=== PATIENT | male | born 1955 | race Caucasian/White ===

== ENCOUNTER → 2018-05-28 | Outpatient (CLI) | payer OTHER ==
[~2018-05-28] MED LIST: ASPI81TA45 PO; ATOR20TA PO; FENO160T PO; LOSA50TA2 PO; METO25TA35 PO; OMEP-110 PO; REGADENOSON 0.4 MG/5 ML SYRINGE ONE; ROSU10TA2 PO; ROSU20TA2 PO; TICA90TA PO
== END | disposition home or self-care (01) ==
LOC: CFH 07:54
PROVIDERS: ATTEND Internal Medicine Cardiovascular Disease
DX: I25.9 Chronic ischemic heart disease, unspecified (principal)
CPT/HCPCS: 78452; 93017; A9502; J2785

== ENCOUNTER 2018-07-29 07:40 | Inpatient (IN) | payer OTHER ==
[~2018-07-29] VITALS: Ht 172.7 cm; Wt 103.7 kg
[~2018-07-29 07:40] MED LIST changes: -REGADENOSON 0.4 MG/5 ML SYRINGE ONE
--- NOTE | 2018-07-29 08:11 | NUR ---
FIRST CONTACT WITH PT. PT REPORTS CHEST PAIN/PRESSURE IN UPPER LEFT CHEST, INCREASED COUGHING, SOB. THIS HAS BEEN GOING ON SINCE MONDAY. PT REPORTS THAT HE HAD A STRESS TEST "A COUPLE MONTHS AGO" THAT "DIDN'T GO WELL". PT REPORTS HE DOES NOT KNOW THE ACTUAL RESULTS OF THE STRESS. STRESS TEST DONE AT [facility] ROUNDED ON PT.
[2018-07-29] MEDS ORDERED: ASPIRIN 81 MG TABLET CHEW ONE (08:19)
[2018-07-29] MEDS ORDERED: ASPIRIN 81 MG TABLET CHEW PO ONE (08:30)
[2018-07-29 08:43] LABS: BASOPHILS # (AUTO) 0.05 x10^3/uL (0-0.1); BASOPHILS % (AUTO) 1 % (0-1); EOSINOPHILS # (AUTO) 0.11 x10^3/uL (0-0.4); EOSINOPHILS % (AUTO) 1 % (1-7); LYMPHOCYTES # (AUTO) 1.12 x10^3/uL (1-3.4); LYMPHOCYTES % (AUTO) 14 % (22-44); MD NO; MEAN CORPUSCULAR HEMOGLOBIN 31.9 pg (27.5-34.5); MEAN CORPUSCULAR HGB CONC 33.7 g/dL (33.2-36.2); MEAN CORPUSCULAR VOLUME 94.7 fL (81-97); MEAN PLATELET VOLUME 8.1 fL (7.4-10.4); MONOCYTES % (AUTO) 12 % (2-9); NEUTROPHILS % (AUTO) 72 % (42-75); PLATELET COUNT 244 x10^3/uL (130-400); RED BLOOD COUNT 4.76 x10^6/uL (4.38-5.82); RED CELL DISTRIBUTION WIDTH 13.5 % (9.4-14.8)
[2018-07-29 08:46] LABS: ALANINE AMINOTRANSFERASE 23 U/L (12-78); ALBUMIN 3.1 g/dL (3.4-5.0); ANION GAP 14 mmol/L (5-15); CALCIUM 9.4 mg/dL (8.5-10.1); CHLORIDE 101 mmol/L (98-107); CREATININE 1.23 mg/dL (0.7-1.3)
[2018-07-29 08:50] LABS: ALKALINE PHOSPHATASE 43 U/L (45-117); BILIRUBIN,TOTAL 1.3 mg/dL (0.2-1.0); TOTAL PROTEIN 7.5 g/dL (6.4-8.2); TROPONIN I < 0.015 ng/mL (0.000-0.045)
--- NOTE | 2018-07-29 09:35 | NUR ---
PT REPORTS THAT HE "IS DOING FINE". HIS SYMPTOMS HAVE "REMAINED THE SAME" AND HE HAS NO NEEDS AT THIS TIME. VSS. NAD. CALL LIGHT IN PLACE.
[2018-07-29] MEDS ORDERED: OMNIPAQUE 350 MG/ML, 100ML BOTTLE ONE (10:26)
--- NOTE | 2018-07-29 11:01 | NUR ---
PT IS RESTING AND CALM. PT IS AWARE OF DIAGNOSIS OF PULM EMBOLISM AND PLAN OF CARE. PT VERBALIZED UNDERSTANDING AND IS AGREEABLE WITH PLAN. VSS. NAD. CALL LIGHT IN REACH.
[2018-07-29] MEDS ORDERED: ATOR-2 PO (11:07)
[2018-07-29] MEDS ORDERED: METO50TA82 PO (11:08)
[2018-07-29] MEDS ORDERED: ISOS10TA6 PO (11:11)
[2018-07-29] MEDS ORDERED: CHLO25TA PO (11:11)
[2018-07-29] MEDS ORDERED: HEPARIN 5,000 UNITS/ML, 1ML IV ONE (11:30)
[2018-07-29] MEDS ORDERED: HEPARIN 5,000 UNITS/ML, 1ML ONE (11:36)
[2018-07-29] MEDS ORDERED: HEPARIN 25,000 UNITS/500ML PMX 500 ML ONE (11:37)
[2018-07-29] MEDS: HEPARIN 25,000 UNITS/500ML PMX 500 ML IV PRN (11:42)
--- NOTE | 2018-07-29 11:46 | NUR ---
Heparin gtt initiated per order. Pt positioned for comfort in bed, NADN, denies needs.
--- NOTE | 2018-07-29 12:10 | NUR ---
REPORT GIVEN TO FLAVIA. HEP DRIP RUNNING. PT STABLE AND CALM. NAD.
[2018-07-29] MEDS ORDERED: POTASSIUM CHLORIDE 20 MEQ TAB.ER.PRT PO ONE (12:30)
[2018-07-29] MEDS ORDERED: ACETAMINOPHEN 325 MG TABLET PO PRN (12:30)
--- NOTE | 2018-07-29 12:36 | NUR ---
PT DESTINATION CHANGED. GAVE REPORT TO WOOD, PT GOING TO 404-2.
--- NOTE | 2018-07-29 12:54 | NUR ---
Patient is resting comfortably in bed. Vital Signs within normal limits. Pt is ready for transfer. NAD.
[2018-07-29] MEDS ORDERED: MORPHINE SULFATE 4 MG/ML, 1ML IVPush PRN (13:30)
[2018-07-29 14:10] VITALS: BP 151/89
[2018-07-29] MEDS: MORPHINE SULFATE 4 MG/ML, 1ML IVPush PRN ×2 (18:11→22:13)
[2018-07-29] MEDS: HEPARIN 5,000 UNITS/ML, 1ML IV PRN (18:49)
[2018-07-29 19:06] VITALS: BP 142/90
[2018-07-29 22:10] VITALS: BP 138/86
[2018-07-29] MEDS: ATORVASTATIN 80 MG TABLET PO SCH (22:11)
[2018-07-29] MEDS: METOPROLOL TARTRATE 50 MG TABLET PO SCH (22:12)
[2018-07-30 00:25] VITALS: BP 137/84
[2018-07-30] MEDS: HEPARIN 5,000 UNITS/ML, 1ML IV PRN ×3 (01:41→22:23)
[2018-07-30] MEDS ORDERED: morphine SULFATE 10 MG/ML, 1ML IVPush ONE (02:15)
[2018-07-30] MEDS: MORPHINE SULFATE 4 MG/ML, 1ML IVPush PRN (05:32)
[2018-07-30 07:31] VITALS: BP 138/95
[2018-07-30 08:25] LABS: ANION GAP 8 mmol/L (5-15); CALCIUM 9.2 mg/dL (8.5-10.1); CHLORIDE 99 mmol/L (98-107)
[2018-07-30 08:29] LABS: CHOLESTEROL, TOTAL 140 mg/dL (140-239); CREATININE 1.33 mg/dL (0.7-1.3); HDL CHOL % 20 % (26-37); HDL CHOLESTEROL (DIRECT) 28 mg/dL (40-60); LDL CHOLESTEROL,CALCULATED 80 mg/dL (54-169); LDL/HDL RATIO 2.9 (0.5-3.0); TRIGLYCERIDES 158 mg/dL (50-200); VLDL CHOLESTEROL 32 mg/dL (0-25)
[2018-07-30] MEDS ORDERED: CHLORTHALIDONE 25 MG TABLET PO SCH (09:00)
[2018-07-30] MEDS: LIDODERM 5% PATCH TD SCH (10:38)
[2018-07-30] MEDS: ISOSORBIDE MONONITRATE ER 30 MG TABLET PO SCH (10:39)
[2018-07-30] MEDS: ASPIRIN 81 MG TABLET EC PO SCH (10:39)
[2018-07-30] MEDS: LOSARTAN 50MG TABLET PO SCH (10:39)
[2018-07-30] MEDS: METOPROLOL TARTRATE 50 MG TABLET PO SCH ×2 (10:40→20:26)
[2018-07-30] MEDS: FENOFIBRATE 145 MG TABLET PO SCH (10:40)
[2018-07-30] MEDS: IBUPROFEN 200 MG TABLET PO PRN (10:41)
[2018-07-30] MEDS: HEPARIN 25,000 UNITS/500ML PMX 500 ML IV PRN ×2 (11:40→22:24)
[2018-07-30 14:23] VITALS: BP 138/95
[2018-07-30 19:38] VITALS: BP 102/65
[2018-07-30] MEDS: ATORVASTATIN 80 MG TABLET PO SCH (20:26)
[2018-07-31 00:35] VITALS: BP 102/64
[2018-07-31 04:36] LABS: BASOPHILS # (AUTO) 0.02 x10^3/uL (0-0.1); BASOPHILS % (AUTO) 0 % (0-1); EOSINOPHILS # (AUTO) 0.21 x10^3/uL (0-0.4); EOSINOPHILS % (AUTO) 3 % (1-7); LYMPHOCYTES # (AUTO) 1.09 x10^3/uL (1-3.4); LYMPHOCYTES % (AUTO) 13 % (22-44); MD NO; MEAN CORPUSCULAR HEMOGLOBIN 31.8 pg (27.5-34.5); MEAN CORPUSCULAR HGB CONC 33.2 g/dL (33.2-36.2); MEAN CORPUSCULAR VOLUME 95.8 fL (81-97); MEAN PLATELET VOLUME 7.9 fL (7.4-10.4); MONOCYTES # (AUTO) 1.06 x10^3/uL (0.2-0.8); MONOCYTES % (AUTO) 13 % (2-9); NEUTROPHILS # (AUTO) 6.13 x10^3/uL (1.8-6.8); NEUTROPHILS % (AUTO) 72 % (42-75); PLATELET COUNT 267 x10^3/uL (130-400); RED BLOOD COUNT 4.35 x10^6/uL (4.38-5.82); RED CELL DISTRIBUTION WIDTH 13.2 % (9.4-14.8)
[2018-07-31 04:50] LABS: ALANINE AMINOTRANSFERASE 18 U/L (12-78); ALBUMIN 2.5 g/dL (3.4-5.0); ANION GAP 8 mmol/L (5-15); CALCIUM 8.9 mg/dL (8.5-10.1); CHLORIDE 96 mmol/L (98-107); CREATININE 2.02 mg/dL (0.7-1.3)
[2018-07-31 04:52] LABS: ALKALINE PHOSPHATASE 36 U/L (45-117); BILIRUBIN,TOTAL 1.3 mg/dL (0.2-1.0); TOTAL PROTEIN 6.6 g/dL (6.4-8.2)
[2018-07-31] MEDS: HEPARIN 25,000 UNITS/500ML PMX 500 ML IV PRN ×2 (05:00→20:57)
[2018-07-31] MEDS: IBUPROFEN 200 MG TABLET PO PRN ×3 (05:12→21:04)
[2018-07-31 07:10] VITALS: BP 126/80
[2018-07-31] MEDS: ASPIRIN 81 MG TABLET EC PO SCH (10:05)
[2018-07-31] MEDS: FENOFIBRATE 145 MG TABLET PO SCH (10:05)
[2018-07-31] MEDS: ISOSORBIDE MONONITRATE ER 30 MG TABLET PO SCH (10:06)
[2018-07-31] MEDS: LOSARTAN 50MG TABLET PO SCH (10:06)
[2018-07-31] MEDS: LIDODERM 5% PATCH TD SCH (10:07)
[2018-07-31] MEDS: METOPROLOL TARTRATE 50 MG TABLET PO SCH ×2 (10:07→20:59)
[2018-07-31] MEDS: SODIUM CHLORIDE 0.9% 1,000 ML IV SCH ×2 (10:23→20:59)
[2018-07-31 12:53] VITALS: BP 127/75
[2018-07-31] MEDS: HEPARIN 5,000 UNITS/ML, 1ML IV PRN ×2 (13:21→19:56)
[2018-07-31 19:29] VITALS: BP 114/67
[2018-07-31] MEDS: ATORVASTATIN 80 MG TABLET PO SCH (20:59)
[2018-08-01 02:01] VITALS: BP 108/68
[2018-08-01 07:35] VITALS: BP 118/79
[2018-08-01] MEDS: SODIUM CHLORIDE 0.9% 1,000 ML IV SCH (09:10)
[2018-08-01] MEDS: LOSARTAN 50MG TABLET PO SCH (09:11)
[2018-08-01] MEDS: FENOFIBRATE 145 MG TABLET PO SCH (09:11)
[2018-08-01] MEDS: ASPIRIN 81 MG TABLET EC PO SCH (09:11)
[2018-08-01] MEDS: ISOSORBIDE MONONITRATE ER 30 MG TABLET PO SCH (09:11)
[2018-08-01] MEDS: METOPROLOL TARTRATE 50 MG TABLET PO SCH ×2 (09:11→21:50)
[2018-08-01] MEDS: HEPARIN 5,000 UNITS/ML, 1ML IV PRN (09:12)
[2018-08-01] MEDS: LIDODERM 5% PATCH TD SCH (09:12)
[2018-08-01] MEDS ORDERED: APIXABAN 5 MG TABLET ONE (09:24)
[2018-08-01] MEDS ORDERED: PHARMACY MAY ADJ FOR RENAL FX MC PRN (09:30)
[2018-08-01] MEDS: APIXABAN 5 MG TABLET PO SCH ×2 (09:31→21:51)
[2018-08-01 13:00] VITALS: BP 110/69
[2018-08-01 14:38] LABS: MICROSCOPIC NOT IND
[2018-08-01 14:56] LABS: CULTURE INDICATED? NO
[2018-08-01 15:13] LABS: CREATININE,URINE RANDOM 40.4 mg/dL
[2018-08-01 19:13] VITALS: BP 133/75
[2018-08-01 21:47] VITALS: BP 130/73
[2018-08-01] MEDS: ATORVASTATIN 80 MG TABLET PO SCH (21:50)
[2018-08-02 00:49] VITALS: BP 133/83
[2018-08-02] MEDS: SODIUM CHLORIDE 0.9% 1,000 ML IV SCH ×2 (02:02→09:27)
[2018-08-02 05:22] LABS: ALANINE AMINOTRANSFERASE 20 U/L (12-78); ALBUMIN 2.3 g/dL (3.4-5.0); ANION GAP 6 mmol/L (5-15); CALCIUM 9.4 mg/dL (8.5-10.1); CHLORIDE 105 mmol/L (98-107)
[2018-08-02 05:24] LABS: ALKALINE PHOSPHATASE 38 U/L (45-117); BILIRUBIN,TOTAL 0.9 mg/dL (0.2-1.0); CREATININE 1.11 mg/dL (0.7-1.3)
[2018-08-02 05:32] LABS: BASOPHILS # (AUTO) 0.01 x10^3/uL (0-0.1); BASOPHILS % (AUTO) 0 % (0-1); EOSINOPHILS # (AUTO) 0.21 x10^3/uL (0-0.4); EOSINOPHILS % (AUTO) 3 % (1-7); LYMPHOCYTES # (AUTO) 0.83 x10^3/uL (1-3.4); LYMPHOCYTES % (AUTO) 12 % (22-44); MD NO; MEAN CORPUSCULAR HEMOGLOBIN 31.6 pg (27.5-34.5); MEAN CORPUSCULAR HGB CONC 33.2 g/dL (33.2-36.2); MEAN CORPUSCULAR VOLUME 95.2 fL (81-97); MEAN PLATELET VOLUME 7.5 fL (7.4-10.4); MONOCYTES # (AUTO) 0.84 x10^3/uL (0.2-0.8); MONOCYTES % (AUTO) 12 % (2-9); NEUTROPHILS # (AUTO) 5.26 x10^3/uL (1.8-6.8); NEUTROPHILS % (AUTO) 74 % (42-75); PLATELET COUNT 336 x10^3/uL (130-400); RED BLOOD COUNT 4.09 x10^6/uL (4.38-5.82); RED CELL DISTRIBUTION WIDTH 13.6 % (9.4-14.8)
[2018-08-02 07:48] VITALS: BP 123/61
[2018-08-02] MEDS: METOPROLOL TARTRATE 50 MG TABLET PO SCH (07:58)
[2018-08-02] MEDS: APIXABAN 5 MG TABLET PO SCH (07:58)
[2018-08-02] MEDS: FENOFIBRATE 145 MG TABLET PO SCH (07:58)
[2018-08-02] MEDS: ASPIRIN 81 MG TABLET EC PO SCH (07:58)
[2018-08-02] MEDS: LOSARTAN 50MG TABLET PO SCH (07:58)
[2018-08-02] MEDS: ISOSORBIDE MONONITRATE ER 30 MG TABLET PO SCH (07:58)
[2018-08-02] MEDS ORDERED: APIX5TAB PO (08:41)
[2018-08-02] MEDS: LIDODERM 5% PATCH TD SCH (09:46)
[2018-08-02] MEDS ORDERED: LIDODERM REMOVE PATCH NOTE XX SCH (22:00)
[2018-08-08] MEDS ORDERED: APIXABAN 5 MG TABLET PO SCH (09:00)
== END 2018-08-02 13:00 | disposition home or self-care (01) | DRG 175 ==
LOC: ED 09:57 → EDIP 11:36 → 4WST 12:48
PROVIDERS: ADMIT Internal Medicine; ATTEND Internal Medicine
DX: I26.99 Other pulmonary embolism without acute cor pulmonale (principal); J96.01 Acute respiratory failure with hypoxia; N17.0 Acute kidney failure with tubular necrosis; I50.30 Unspecified diastolic (congestive) heart failure; J98.11 Atelectasis; D64.9 Anemia, unspecified; E78.5 Hyperlipidemia, unspecified; E87.6 Hypokalemia; I11.0 Hypertensive heart disease with heart failure; I25.10 Atherosclerotic heart disease of native coronary artery without angina pectoris; K21.9 Gastro-esophageal reflux disease without esophagitis; K76.89 Other specified diseases of liver; Z79.01 Long term (current) use of anticoagulants; Z80.8 Family history of malignant neoplasm of other organs or systems; I25.2 Old myocardial infarction; Z82.3 Family history of stroke; Z82.49 Family history of ischemic heart disease and other diseases of the circulatory system; Z95.5 Presence of coronary angioplasty implant and graft
CPT/HCPCS: 36415; 71045; 71275; 80048; 80053; 80061; 81003; 82570; 83735; 83880; 83935; 84100; 84300; 84484; 85025; 85520; 93005; 93306; 93970; 96374; G0378; J1644; Q9967; J2270; J7030